=== PATIENT | female | born 1970 | race Two or more races ===

== ENCOUNTER 2022-08-13 09:21 | Emergency (ER) | payer OTHER ==
[2022-08-13 09:42] VITALS: BP 159/82; PULSE 67; RESP 18; TEMP 98.3; BMI 35.1
[2022-08-13] MEDS ORDERED: KETOROLAC TROMETHAMINE 30 MG/1 ML VIAL IVPUSH ONE (11:36)
[2022-08-13] MEDS ORDERED: KETOROLAC TROMETHAMINE 15 MG/ML VIAL ONE (12:19)
[2022-08-13 13:17] LABS: BASO % 0.7 % (0-2.0); EOS % 1.3 % (0-4.5); HEMATOCRIT 42.6 % (32.4-45.2); HEMOGLOBIN 14.3 GM/dL (10.7-15.3); LYMPH % 37.1 % (8-40); MCH 28.9 pg (25.7-33.7); MCHC 33.6 g/dl (32.0-36.0); MEAN CELL VOLUME 85.9 fl (80-96); MEAN PLT VOLUME 9.8 fl (7.5-11.1); MONO % 6.3 % (3.8-10.2); NEUT % 54.6 % (42.8-82.8); PLATELET COUNT 197 10^3/uL (134-434); RBC 4.96 M/mm3 (3.60-5.2); WHITE BLOOD COUNT 5.7 K/mm3 (4.0-10.0)
[2022-08-13 13:40] LABS: PH,URINE 7.5 (5.0-8.0); URINE APPEARANCE TURBID; URINE BILIRUBIN NEGATIVE (NEGATIVE); URINE COLOR YELLOW; URINE GLUCOSE (UA) NEGATIVE (NEGATIVE); URINE KETONE NEGATIVE (NEGATIVE); URINE LEUK ESTERASE NEGATIVE (NEGATIVE); URINE NITRITE NEGATIVE (NEGATIVE); URINE PROTEIN NEGATIVE (NEGATIVE); URINE UROBILINOGEN 0.2 mg/dL (0.2-1.0)
[2022-08-13 13:42] LABS: HCG,QUALITATIVE URINE Negative
[2022-08-13 13:48] LABS: CALCIUM 9.8 mg/dL (8.5-10.1)
[2022-08-13 13:49] LABS: ALBUMIN 4.1 g/dl (3.4-5.0); BLOOD UREA NITROGEN 11.4 mg/dL (7-18)
[2022-08-13 13:53] LABS: BILIRUBIN,TOTAL 0.7 mg/dL (0.2-1)
[2022-08-13 13:54] LABS: TOT PROT 8.2 g/dl (6.4-8.2)
[2022-08-13 14:06] LABS: CREATININE 0.6 mg/dL (0.55-1.3)
[2022-08-13] MEDS ORDERED: ACETAMINOPHEN 1000 MG/100 ML BAG IVPB ONE (18:11)
[2022-08-13] MEDS ORDERED: ACETAMINOPHEN INJECTION 100 ML IVPB ONE (19:13)
== END 2022-08-13 22:06 | disposition home or self-care (01) ==
LOC: JER 09:21
PROC: 3E0333Z Introduction of Anti-inflammatory into Peripheral Vein, Percutaneous Approach (ICD-10-PCS; principal; 2022-08-13)
PROC: 3E0333Z Introduction of Anti-inflammatory into Peripheral Vein, Percutaneous Approach (ICD-10-PCS; 2022-08-13)
DX: K76.0 Fatty (change of) liver, not elsewhere classified (principal); R10.84 Generalized abdominal pain
CPT/HCPCS: 36415; 74177-TC; 76705-TC; 80053; 81003; 83690; 84703; 85025; 93005; 93010; 99285-25; Q9967